=== PATIENT | male | born 1950 | race Caucasian/White ===

== ENCOUNTER 2021-06-15 15:38 | Inpatient (IN) | payer OTHER ==
[~2021-06-15] VITALS: Ht 177.8 cm; Wt 58.6 kg
--- NOTE | ~2021-06-15 | EMS ---
[facility] [address] [place] [address] EMS Patient Care Report Name: LUIS EDUARDO HOLLINGSWORTH Room #: REG STEF Ramos#: [id number] Admission: 06/15/21 Attend Phys: Discharge: Date of : 52 Report #: [id number] THIS REPORT FOR: //name// Report Transmitted: 06/15/2021 15:52 EMS Care Summary [place], [place]/[facility] Incident [id number] @ 06/15/2021 13:06 Incident Location [address] [place] [address] Patient ANDREW HOLLINGSWORTH Male, 71 Years 1950 Patient Address [address] [place] [address] Patient History Chronic Obstructive Pulmonary Disease (COPD), Chief Complaint general weakness/falls Disposition Transported No Lights/[place] Dispatch Reason Falls Transported To [facility] Narrative pt neighbors called for pt who is having multiple falls inside his home. they checked on him a couple days ago and found he had fallen through the floor in the bathroom and was unable to get up/out. it was believed he had been there for more than 24 hrs. they helped him out into a chair. they checked on him again today and found he had fallen again. they called 911 for pt eval. on arrival pt is ambulatory and denies injury. his home appears unsafe to live in, floors are rotting and ready to give way. pt clothing is covered in feces. pt is refusing to leave. pt helped outside to safe area. Note Specialist [facility] [address] [place] [address] EMS Patient Care Report Name: LUIS EDUARDO HOLLINGSWORTH Room #: REG Rachel#: [id number] Admission: 06/15/21 Attend Phys: Discharge: Date of : 52 Report #: [id number] arrives and calls [employer] to potentially condemn home. pt brother will not come get pt. eventually pt agrees to eval at [facility], knowing he will likely not be allowed back in home. pt seated on cot, VS transport w/o incident. Initial Vitals @15:24P: 73,R: 18,BP: 133/70,Pain: 0/10,GCS: 15,SpO2: 92,Revised Trauma: 12, Assessments @13:20MENTAL:No Abnormalities,SKIN:No Abnormalities,HEENT:Head/Face: No Abnormalities,LUNG SOUNDS:ABDOMEN:PELVIS//GI:Incontinence,EXTREMITIES:Left Arm: Other,Right Arm: Other,PULSE:Radial: 2+ Normal,NEURO:No Abnormalities, Impression Generalized Weakness Procedures @13:20ALS AssessmentResponse: Unchanged@13:25StretcherResponse: Unchanged Timeline 13:03,Call Received 13:03,Dispatch Notified 13:06,Dispatched 13:07,En Route 13:16,On Scene 13:18,At Patient 13:20,ALS Assessment,Response: Unchanged 13:25,Stretcher,Response: Unchanged 15:22,Depart Scene 15:24,BP: 133/70 M,PULSE: 73,RR: 18 R,SPO2: 92 Ox,ETCO2: ,BG: ,PAIN: 0,GCS: 15, 15:35,At Destination 15:56,Call Closed Disclaimer v1.1 Copyright 2020 [employer] This EMS Care Summary contains data elements from the applicable legal record (which may be displayed differently). It is designed to provide pertinent information for the following purposes: continuity of care, clinical quality, and state data reporting. The complete legal record is available to ED staff and administrators of the receiving hospital in [employer] (Inspect Manager)'s Patient Tracker. All data is provided "as is."
[2021-06-15 15:39] VITALS: BP 141/61
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
[2021-06-15 16:46] LABS: ABSOLUTE NEUTROPHILS 6.5 thou/uL (1.4-8.2); BASOPHILS 0.6 % (0.0-2.0); EOSINOPHILS 0.6 % (0.0-3.0); HEMATOCRIT 36.8 % (42.0-52.0); HEMOGLOBIN 12.5 gm/dL (14.0-18.0); LYMPHOCYTES 15.8 % (24.0-44.0); MCH 31.8 pg (26.0-34.0); MCHC 33.9 g/dL (28.0-37.0); MCV 93.9 fL (80.0-100.0); MONOCYTES 10.1 % (1.0-8.0); PLATELET COUNT 228 thou/uL (150-400); POLYS 72.9 % (36.0-66.0); RBC 3.92 mil/uL (4.50-6.00); RDW 13.6 % (10.5-14.5); WBC 8.9 thou/uL (4.0-11.0)
[2021-06-15 16:59] LABS: CALCIUM 8.8 mg/dL (8.5-10.1); CREATININE 1.2 mg/dL (0.7-1.3); POTASSIUM 3.7 mmol/L (3.5-5.1)
[2021-06-15 17:16] LABS: ALBUMIN 3.4 g/dL (3.4-5.0); TOTAL BILIRUBIN 0.7 mg/dL (0.2-1.0); TOTAL PROTEIN 6.7 g/dL (6.4-8.2)
[2021-06-15 17:52] LABS: URINE BILIRUBIN NEGATIVE (Negative); URINE BLOOD 3+ (Negative); URINE CLARITY CLEAR; URINE COLOR YELLOW; URINE GLUCOSE-RANDOM* NEGATIVE (Negative); URINE KETONES 3+ (Negative); URINE PROTEIN (DIPSTICK) TRACE (Negative); URINE SPECIFIC GRAVITY 1.015 (1.005-1.035)
[2021-06-15 18:05] LABS: URINE LEUKOCYTES-REFLEX 2+ (Negative); URINE NITRITE-REFLEX POSITIVE (Negative)
[2021-06-15 18:06] LABS: URINE REDUCING SUBSTANCE NEGATIVE
[2021-06-15 18:09] LABS: CASTS None Seen /LPF (None Seen); CRYSTALS None Seen /LPF (None Seen); SQUAMOUS 0-3 Few /LPF (0-3); URINE RBC 3-10 Few /HPF (NONE SEEN); URINE WBC-REFLEX 6-15 Few /HPF (0-5)
--- NOTE | 2021-06-15 21:46 | NUR ---
PT OUT OF ROOM IN HALLWAY APRIL CONFUSED ASKING FOR A BAGEL FROM THE FREEZER AND A CIGARETTE PT NOT RECEPTIVE TO REORIENTATION ATTEMPTS. PT PULED OUT IV AND OFF ALL VITAL MONITORING EQUIPMENT. PIV REPLACED AND PT PLACED BACK IN BED ON THE [facility]
[2021-06-15 22:55] VITALS: BP 137/60
--- NOTE | 2021-06-16 01:07 | NUR ---
PT ADMITTED TO UNIT APPROX 2256, RESTLESS, NOTED TO TAKE OFF OXYGEN, CONTINUES TO REFUSE REAPPLICATION. PT CONFUSED, MINIMALLY VERBAL. PT ALERT TO NAME, PREFERS TO BE CALLED 'WILL'. UNABLE TO OBTAIN FALL PRECAUTIONS CONSENT. PT ASSESSED WITH FLACC OF 0. PT NOTED TO BE GUARDED WITH BUE CLOSE TO CHEST. PT NOTED TO HAVE REDNESS WITH OPEN SKIN TO SACRUM, WOUND PICTURES TO BE OBTAINED WHEN PT COOPERATIVE AND LESS GUARDED. OTHERWISE ABRASIONS NOTED THROUGHOUT BODY IN ADDITION TO SCABS AND SCARS. PT INCONTINENT OF BOWEL AND BLADDER. PT ENCOURAGED TO NOTIFY STAFF FOR ALL NEEDS, CALL LIGHT WITHIN REACH, BED ALARM ON, BED LOCKED IN LOWEST POSITION, ROOM REMAINS NEAR NURSES STATION, FREQUENT MONITORING WILL CONTINUE.
[2021-06-16 04:24] VITALS: BP 132/75
[2021-06-16 05:59] LABS: CALCIUM 7.7 mg/dL (8.5-10.1); POTASSIUM 3.4 mmol/L (3.5-5.1)
[2021-06-16 06:02] LABS: HEMATOCRIT 31.1 % (42.0-52.0); MCH 32.3 pg (26.0-34.0); MCHC 33.8 g/dL (28.0-37.0); MCV 95.4 fL (80.0-100.0); RBC 3.26 mil/uL (4.50-6.00); RDW 13.2 % (10.5-14.5); WBC 7.9 thou/uL (4.0-11.0)
[2021-06-16 06:10] LABS: HEMOGLOBIN 10.5 gm/dL (14.0-18.0)
[2021-06-16 07:50] VITALS: BP 142/78
--- NOTE | 2021-06-16 10:07 | NUR ---
WOUND CONSULT; THE SACRUM AND UPPER BACK AREAS WERE ASSESSED. THE ETIOLOGY OF THESE AREAS ARE UKNOWN, PRESSURE VS FRICTION OR SCARRED AREAS OF PREVIOUS INJURY. NO DRAINAGE SEEN. NO ODOR. THE PATIENT CAN TURN HIMSELF. RECOMMENDATIONS; -BARRIER CRAM TO UPPER BACK/SACRUM -ENCOURAGE PATIENT TO TURN. -LOW AIR LOSS PUMP. DISCUSSED WITH STAFF.
--- NOTE | 2021-06-16 11:12 | NUR ---
Assumed care of pt at 0700. Pt alert but forgetful. IVF and IV antibiotics infusing. Denies pain. Will need placement. Will need MRI. Call light within reach. Fall precautions in place. Will continue to monitor.
[2021-06-16 12:16] LABS: FOLIC ACID 21.6 ng/mL (8.6-58.9)
--- NOTE | 2021-06-16 14:35 | NUR ---
CM MET WITH PATIENT PT IS SHOWING PATIENT PAY. CM ASKED PT IF HE HAS INSURANCE AND HE STATED YES BUT UNSURE WHAT PLAN. PT WAS ABLE TO STATE HIS NAME AND DATE OF BEING CORRECT AND REPORTS THAT HE GOES TO SEE DR. JOCELYN ROACH HIS PCP OFF . CM CONTACTED THEIR OFFICE AT [phone] WHO REPORT PT HAS [employer] GOLD PLAN ID #[id number]. CM NOTIFIED SW COVERING UNIT WELL PRE-CERT TO PLEASE VERIFY AND UPDATE INSURANCE INFO.
[2021-06-16 16:21] VITALS: BP 145/67
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
[2021-06-16 19:18] VITALS: BP 141/74
--- NOTE | 2021-06-17 01:31 | NUR ---
ASSUMED CARE OF PT AT 1900. BEDSIDE REPORT RECIEVED, SIMÓN ASSESSMENT COMPLETE. PT DENIES ANY PAIN AT THIS TIME, REQUESTING TO GO TO BED FROM CHAIR. ASSISTED PT TO BATHROOM PRIOR C SBA AND GAIT BELT, HAD SMALL BM. ASSISTED PT BACK TO BED. HIGH FALL PRECAUTIONS IN PLACE. MEDS GIVEN ORDER. LFA PIV CDI, PATENT C PROTECTIVE WRAP. IVF RUNNING ORDERED. PT EXPERIENCING CONFUSION, PROVIDED REORIENTATION AND PT EDUCATION. PT CONCERNED ABOUT COST OF STAY. PROVIDED REASSURANCE, WILL PASS ON TO DAY SHIFT. NO OTHER NEEDS AT THIS TIME. CALL LIGHT IN REACH
[2021-06-17 05:51] LABS: ALBUMIN 2.4 g/dL (3.4-5.0)
[2021-06-17 05:53] LABS: CALCIUM 7.6 mg/dL (8.5-10.1); MAGNESIUM 1.7 mg/dL (1.8-2.4); PHOSPHORUS 3.2 mg/dL (2.6-4.7); POTASSIUM 3.9 mmol/L (3.5-5.1)
[2021-06-17 07:43] VITALS: BP 176/72
--- NOTE | 2021-06-17 11:37 | NUR ---
Assumed care of pt at 0700. Denies pain. SBA. IVF discontinue per order. Pt needs placement. Call light within reach. Fall precautions in place. Will continue to monitor.
[2021-06-17 15:11] VITALS: BP 148/84
--- NOTE | 2021-06-17 17:05 | NUR ---
ALISA reviewed chart and spoke with nursing and attending physician. Pt remains on IV abx and is progressing towards goals for discharge. Neuro surgery consulted. Psych consult ordered to evaluate pt's capacity for decision making. [facility] was able to verify pt's insurance. Pt has [facility] Medicare. The spelling of pt's last name has also been updated. ALISA met with pt at bedside. Introduced role of SW. Pt is alert to self only. Pt unable to state name of hospital or location of hospital. SW asked pt about his living situation. Pt states that he has been living in his car and that he thinks he drove himself to the hospital. SW explained that an ambulance brought him to the hospital after falling at home. Pt does not remember falling. Pt asked if his car was at his home. Pt was able to verify home address and . Pt states his PCP is Dr. Sundar Styles at [facility]. Pt able to state that the physician's office is at [address] [place] [address]. SW informed pt that his insurance has been verified and informed pt that he has [facility]. Pt states he thought that he had [employer] insurance. Pt states he has not had HH services or been to a SNF in the past. Pt reports he is able to make his own meals and has working utilities at his home. Pt states he knows he should not return home until the floors have been rebuilt. Pt states he will sell his house and will be going to stay with his brother, Master. Pt unable to provide Master's phone number and states that his brother is aware of his living situation. Pt states that he does not have any other family or friends that can help with his situation. No contact info for pt's brother on file or in ER report. ALISA left voice message for [facility] to see if pt has an open case, now that pt's name has been corrected. ALISA placed call to [facility] [email or web address] [facility] and spoke with Dr. Styles's PA, Giovanna. Obtained contact info for pt's brother Master ( ). Pt was last seen in the office on 06/27/2020 for his annual physical. He has not followed up since that time. Pt with hx of COPD and is a daily smoker. No use of ETOH. Pt has seen Dr. Zavaleta since December of 2016. No DPOA document on file. ALISA placed call to pt's brother. Introduced role of SW. Pt's brother states that he has not seen his brother in the past 6 months due to COVID. Pt was doing his laundry at Master's house. Once pt received the COVID vaccine, he started going back to the laundromat. Master states he has left message for the [facility] to determine the status of pt's home. To his knowledge there are not any violations that have been issued. ALISA reviewed documentation from ER report. Pt has never and does not have children. Pt's two sisters are both . Pt's brother is his only living family member. Per Master, pt has been independent with medical and financial matters and has never appointed a DPOA. Pt is retired from [employer]. Pt has a Bachelors Degree. He is not a [employer]. 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 Pt's brother states that pt was supposed to have cataract surgery prior to the COVID pandemic. Pt with hx of THC use. ALISA discussed discharge plan. Pt is not able to stay with Master at this time due to Master working from home. Master would like to be kept updated regarding pt's care and discharge plan. ALISA explained that pt will likely need placement. Pt will need [place], as he does not have the financial means to pay privately. ALISA notified [facility] [employer] to assist. ALISA placed Master's contact info in [place]. ALISA is following to assist as needed with discharge planning.
[2021-06-17 20:16] VITALS: BP 154/82
--- NOTE | 2021-06-18 02:24 | NUR ---
ASSUMED PT CARE AT 1900.PT WAS OBSERVED SITTING UP IN THE RECLINER IN HIS ROOM WATCHING TV.PT DENIED PAIN SO FAR.MULTIPLE BRUISING ALL OVER BODY.ABRAISION TO L KNEE FROM FALL.BARRIER CREAM TO BACK AND SACRUM.PT VERY SAULT STE. MARIE.PT SLEEPING ON HIS BED AT THIS TIME.CALL LIGHT WITHIN REACH.
[2021-06-18 08:21] VITALS: BP 156/103
--- NOTE | 2021-06-18 09:55 | NUR ---
WOUND CARE F/U; THE SACRUM AND BACK AREAS ARE CLINICALLY BETTER TODAY. NO S/S OF INFECTION. NO ERYTHEMA. NO CHANGES TO THE PLAN OF CARE. PATIENT IS UP IN A CHAIR TODAY AND CAN STAND WITHOUT DIFFICULTY. NO CHANGES NEEDED.
[2021-06-18] MEDS ORDERED: CIPRO500 M1 PO (13:08)
--- NOTE | 2021-06-18 13:08 | NUR ---
Pt agreeable to SNF stay with transition to ltc medicaid pending. [facility] [employer] notified with request to start medicaid wojciech. Referrals faxed and called to Jayne morgan and Ju and requested both visit with him regarding facility options for ltc. Dc ready today. Seen by Psych and pt aware that he can no longer live in his home. PT/OT have evaluated. Short SNF stay appropriate as well. Pt is A&ox4 today with insight into his situation. [facility] for baseline eval. DC Plan is to SNF once accepted.
--- NOTE | 2021-06-18 17:14 | NUR ---
ASSUMED CARE OF PT AT 0700 THIS MORNING. PT WAS ADMITTED FROM ER LAST NIGHT. PT DX WITH UTI, DEHYDRATION AND FELL. PT IS A/OX3-4 WITH SOME CONFUSION. ASSESSMENTS NOTED IN CHART AND OTHERWISE UNREMARKABLE. FALL PRECAUTIONS ARE IN PLACE. PT IS UP WITH ASST WITH GAIT BELT. PT DOES HAVE A NONPRODUCTIVE COUGH. IV IN LT FA SL. PT IS BEING DISCHARGED TO [facility] LATER THIS AFTERNOON, EVENING. CALL LIGHT AND OTHER NEEDS ARE IN PLACE. MEDS AND TX GIVEN NEEDED AND SCHEDULED. WILL MONITOR AND NOTE ANY CHANGES.
--- NOTE | 2021-06-20 10:36 | NUR ---
Call rec'd from [facility] liason indicating pt left ama today going back to his home. His brother was notified. The pt was a&xo4.
== END 2021-06-18 18:31 | DRG 557 ==
LOC: ER 15:38 → 4S 19:44 → EROBS 19:44 → 4S 22:56
PROVIDERS: Nurse Practitioner Family; Physician Assistant; ADMIT Hospitalist; ATTEND Hospitalist
DX: M62.82 Rhabdomyolysis (principal); G93.41 Metabolic encephalopathy; E43 Unspecified severe protein-calorie malnutrition; N39.0 Urinary tract infection, site not specified; E86.0 Dehydration; F17.210 Nicotine dependence, cigarettes, uncomplicated; R29.6 Repeated falls; R53.81 Other malaise; M48.02 Spinal stenosis, cervical region; Z60.2 Problems related to living alone; W18.30XA Fall on same level, unspecified, initial encounter; F03.90 Unspecified dementia, unspecified severity, without behavioral disturbance, psychotic disturbance, mood disturbance, and anxiety; S30.0XXA Contusion of lower back and pelvis, initial encounter; J44.9 Chronic obstructive pulmonary disease, unspecified; Z20.822 Contact with and (suspected) exposure to COVID-19; Z86.16 Personal history of COVID-19; Z91.81 History of falling; Y93.89 Activity, other specified; Y92.89 Other specified places as the place of occurrence of the external cause; Y99.8 Other external cause status; Z71.6 Tobacco abuse counseling
CPT/HCPCS: 10195

== ENCOUNTER 2021-06-27 14:34 | Inpatient (IN) | payer OTHER ==
[~2021-06-27] VITALS: Ht 177.8 cm; Wt 57.0 kg
[2021-06-27] VITALS (21 sets, daily range): BP systolic 96–122; BP diastolic 50–63
--- NOTE | ~2021-06-27 | EMS ---
[facility] [address] [place] [address] EMS Patient Care Report Name: LUIS EDUARDO VASQUEZ Room #: 246-P ADM IN M.R.#: [id number] Admission: 06/27/21 Attend Phys: Elton Ruff MD Discharge: Date of : 52 Report #: [id number] THIS REPORT FOR: //name// Report Transmitted: 06/30/2021 12:33 EMS Care Summary [place], [place]/[facility] Incident [id number] @ 06/27/2021 13:48 Incident Location [id number] [place] [id number] Patient LUIS EDUARDO VASQUEZ Male, 71 Years 1950 Patient Address Chief Complaint AMS AND RESP FAILURE Disposition Transported Lights/[place] Dispatch Reason Unconscious/Fainting Transported To [facility] Narrative UPON ARRIVAL WE FOUND P45 PERFORMING BVM VENTILATIONS ON OUR 71 YEAR OLD MALE PATIENT, WHO IS LAYING SUPINE IN THE GRAVEL DRIVEWAY OF A RESIDENCE WITH A [facility] INSTALLATION AND REPAIR TECHNICIAN BY HIS SIDE. THE INSTALLATION AND REPAIR TECHNICIAN STATES SHE CAME TO ASSESS THE PATIENT AND SHE FOUND HIM UNRESPONSIVE IN THE EXCHANGE OPERATOR'S SEAT OF A SEDAN WITH AGONAL RESPS. P45 STATES THE PATIENT IS HYPOTENSIVE WITH A BP OF 80/50 AND HYPOXIC WITH A ROOM AIR SAO2 READING OF 67%. THE PATIENT WAS ACTIVELY VOMITING AND HIS SAO2 READING DID NOT IMPROVE SIGNIFICANTLY WITH BVM VENTILATIONS, SO I ELECTED TO ORALLY INTUBATE THE PATIENT WITH AN 8.0 ETT AND I SECURED IT WITH A TUBE TAMER AT 24 CM AT THE LIPS. I VERIFIED THE ETT VIA VISUALIZATION OF THE CORDS, CONDENSATION IN THE ETT, + EQUAL CX RISE/LUNG SOUNDS, - EPIGASTRIC SOUNDS, AND A GOOD ETCO2 WAVEFORM. THE PATIENT'S SAO2 READING IMPROVED SIGNIFICANTLY AFTER INTUBATION/DEEP SUCTIONING AND HIS BP IMPROVED AFTER A FLUID BOLUS. AFTER STABILIZING THE PATIENT, WE TRANSPORTED THE PATIENT TO [facility] [address] [place] [address] EMS Patient Care Report Name: LUIS EDUARDO VASQUEZ Room #: 246-P [facility] IN [facility]#: [id number] Admission: 06/27/21 Attend Phys: Elton Ruff MD Discharge: Date of : 52 Report #: [id number] FOR EVALUATION AND TREATMENT. Initial Vitals @14:22P: 120,R: 12,CO: 6,EtCO2: 26,SpO2: 92, @14:17P: 105,EtCO2: 26,SpO2: 66, @14:18P: 102,R: 16,EtCO2: 23,SpO2: 63, @14:09P: 36,SpO2: 80, @14:20P: 108,R: 17,EtCO2: 24,SpO2: 66, @14:09P: 120,R: 16,BP: 82/51,Pain: 0/10,GCS: 3,Glucose: 104,SpO2: 81,Revised Trauma: 7,MS Suspected: false @14:30P: 124,R: 16,BP: 100/50,Pain: 0/10,GCS: 3,EtCO2: 30,SpO2: 95,Revised Trauma: 8,MS Suspected: false Assessments @14:07MENTAL:Unresponsive,SKIN:Pale,HEENT:Neck/Airway: JVD,Eyes: Right Pupil: 5-mm,Eyes: Left Pupil: 5-mm,Head/Face: No Abnormalities,LUNG SOUNDS:General: Vomiting,General: Nausea,ABDOMEN:General: Vomiting,General: Nausea,PELVIS//GI:Incontinence,EXTREMITIES:Left Arm: No Abnormalities,Right Arm: No Abnormalities,Left Leg: No Abnormalities,Right Leg: No Abnormalities,PULSE:Radial: 1+ Thready,NEURO:Other, Impression Respiratory Failure Procedures @14:07ALS AssessmentResponse: UnchangedSucceeded@PTANPA Response: UnchangedSucceeded@14:093-Lead ECGResponse: UnchangedSucceeded@PTAOxygen FlowRate: 15 Device: Bag Valve Mask (BVM) Response: UnchangedSucceeded@14:16Orotracheal Intubation Complications: None,Response: UnchangedSucceeded@14:19Suction Response: UnchangedSucceeded@14:13Normal Saline (.9% NaCl) 350cc (20 ga) Site: Forearm-RightResponse: UnchangedSucceeded@14:15Suction Response: UnchangedSucceeded Timeline CMO & PRESIDENT,NPA Response: UnchangedSucceeded, CMO & PRESIDENT,Oxygen FlowRate: 15 Device: Bag Valve Mask (BVM) Response: UnchangedSucceeded, 13:46,Call Received 13:46,Dispatch Notified 13:48,Dispatched 13:49,En Route 14:05,On Scene 14:07,At Patient 14:07,ALS Assessment,Response: UnchangedSucceeded, 14:09,3-Lead ECG,Response: UnchangedSucceeded, 14:09,BP: / M,PULSE: 36,RR: R,SPO2: 80 Ox,ETCO2: ,BG: ,PAIN: ,GCS: , [facility] [address] [place] [address] EMS Patient Care Report Name: LUIS EDUARDO VASQUEZ Room #: 246-P [facility] IN [facility]#: [id number] Admission: 06/27/21 Attend Phys: Elton Ruff MD Discharge: Date of : 52 Report #: [id number] 14:09,BP: 82/51 M,PULSE: 120,RR: 16 R,SPO2: 81 Ox,ETCO2: ,B,PAIN: 0,GCS: 3, 14:13,Normal Saline (.9% NaCl) 350cc 20 ga Site: Forearm-Right,Response: UnchangedSucceeded, 14:15,Suction Response: UnchangedSucceeded, 14:16,Orotracheal Intubation Complications: None,,Response: UnchangedSucceeded, 14:17,BP: / M,PULSE: 105,RR: R,SPO2: 66 Ox,ETCO2: 26 ,BG: ,PAIN: ,GCS: , 14:18,BP: / M,PULSE: 102,RR: 16 R,SPO2: 63 Ox,ETCO2: 23 ,BG: ,PAIN: ,GCS: , 14:19,Suction Response: UnchangedSucceeded, 14:20,BP: / M,PULSE: 108,RR: 17 R,SPO2: 66 Ox,ETCO2: 24 ,BG: ,PAIN: ,GCS: , 14:21,Depart Scene 14:22,BP: / M,PULSE: 120,RR: 12 R,SPO2: 92 Ox,ETCO2: 26 ,BG: ,PAIN: ,GCS: , 14:30,BP: 100/50 M,PULSE: 124,RR: 16 R,SPO2: 95 Ox,ETCO2: 30 ,BG: ,PAIN: 0,GCS: 3, 14:32,At Destination 14:51,Call Closed Disclaimer v1.1 Copyright 2020 [employer] This EMS Care Summary contains data elements from the applicable legal record (which may be displayed differently). It is designed to provide pertinent information for the following purposes: continuity of care, clinical quality, and state data reporting. The complete legal record is available to ED staff and administrators of the receiving hospital in [facility]'s Patient Tracker. All data is provided "as is."
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
--- NOTE | ~2021-06-27 | EEG ---
[facility] [place] [address] ELECTROENCEPHALOGRAM Name: LUIS EDUARDO VASQUEZ Room #: 246-P ADM IN M.R.#: [id number] Admission: 06/27/21 Attend Phys: Elton Ruff MD Discharge: Date of : 52 Report #: [id number] THIS REPORT FOR: //name// DATE OF SERVICE: 06/30/2021 This patient is being evaluated for altered mental status. EEG was done to evaluate that. The EEG is difficult to evaluate because there is a very low voltage. A lot of muscle artifact is present, but low voltage activities at about 4-5 Hz and 5 microvolt appeared to be present. No active epileptiform activity was noticed. Photic stimulation was unremarkable. IMPRESSION: This patient's EEG is difficult to evaluate because a lot of artifact is present. It is abnormal because it is a low-voltage and suppressed. That finding can occur with encephalopathy, effect of psychotropic medication, dementia, etc. Clinical correlation is recommended. Thank you very much for this referral. By: 1213 1228 Anam Smith MD /nt
[~2021-06-27 14:34] MED LIST: CIPRO500 M1 PO
[2021-06-27 15:02] LABS: HEMATOCRIT 35.8 % (42.0-52.0); HEMOGLOBIN 11.8 gm/dL (14.0-18.0); MCH 31.7 pg (26.0-34.0); MCV 95.8 fL (80.0-100.0); RBC 3.74 mil/uL (4.50-6.00); RDW 14.2 % (10.5-14.5); WBC 16.4 thou/uL (4.0-11.0)
[2021-06-27 15:09] LABS: BE(vivo) 1.4 mmol/L (-2 to +3); HCO3 27.4 mmol/L (22.0-26.0); PCO2 48.3 mmHg (35.0-45.0); pH 7.371 (7.360-7.450); sO2 94.4 % (92.0-98.0)
[2021-06-27 15:23] LABS: URINE BILIRUBIN NEGATIVE (Negative); URINE BLOOD TRACE (Negative); URINE CLARITY CLEAR; URINE COLOR YELLOW; URINE GLUCOSE-RANDOM* NEGATIVE (Negative); URINE KETONES 1+ (Negative); URINE LEUKOCYTES-REFLEX NEGATIVE (Negative); URINE NITRITE-REFLEX NEGATIVE (Negative); URINE PROTEIN (DIPSTICK) TRACE (Negative); URINE SPECIFIC GRAVITY >= 1.030 (1.005-1.035); URINE UROBILINOGEN 0.2 E.U./dl (0.2-1.0)
[2021-06-27 15:24] LABS: ALBUMIN 1.7 g/dL (3.4-5.0); ANION GAP 11 mmol/L (7-16); BUN 20 mg/dL (7-18); CHLORIDE 121 mmol/L (98-107); CO2 17 mmol/L (21-32); CREATININE 0.9 mg/dL (0.7-1.3); GLUCOSE 73 mg/dL (74-106); MAGNESIUM 1.3 mg/dL (1.8-2.4); PHOSPHORUS 3.5 mg/dL (2.6-4.7); SALICYLATE < 2.8 mg/dL (2.8-20.0); SGOT 35 U/L (15-37); SGPT 14 U/L (16-63); SODIUM 149 mmol/L (136-145); TOTAL BILIRUBIN 0.3 mg/dL (0.2-1.0); TOTAL PROTEIN 3.9 g/dL (6.4-8.2)
[2021-06-27 15:31] LABS: CALCIUM 5.2 mg/dL (8.5-10.1); POTASSIUM 2.8 mmol/L (3.5-5.1)
[2021-06-27 15:35] LABS: AMP/METHAMP Negative (Negative); BARBITURATES Negative (Negative); BENZODIAZEPINES Negative (Negative); COCAINE Negative (Negative); METHADONE Negative (Negative); OPIATES Negative (Negative); PCP Negative (Negative)
--- NOTE | 2021-06-27 16:39 | NUR ---
VAT CONSULTED FOR CVL PLACEMENT. 6FR TL JACC TO RIGHT IJ. ALL LUMENS PATENT TO FLUSH AND BLOOD RETURN. TRIMMED 25CM/8CM EXTERNAL. LOT PT INTUBATED/TOLERATED WELL. CXR FOR TIPN LOCATION CONFIRMATION.
--- NOTE | 2021-06-27 17:55 | NUR ---
RADIOLOGY REPORT: RIGHT IJ TIP OVERLIES ATRIAL CAVAL JUNCTION. RELEASED FOR USE, PER [facility] VASCULAR ACCESS POLICY.
[2021-06-28] VITALS (33 sets, daily range): BP systolic 95–116; BP diastolic 53–68
[2021-06-28 05:03] LABS: BE(vivo) -0.5 mmol/L (-2 to +3); HCO3 24.8 mmol/L (22.0-26.0); PCO2 43.2 mmHg (35.0-45.0); PO2 101.3 mmHg (80.0-100.0); pH 7.377 (7.360-7.450); sO2 97.5 % (92.0-98.0)
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
[2021-06-28 06:40] LABS: ABSOLUTE NEUTROPHILS 10.9 thou/uL (1.4-8.2); BASOPHILS 0.2 % (0.0-2.0); HEMATOCRIT 34.6 % (42.0-52.0); HEMOGLOBIN 11.1 gm/dL (14.0-18.0); LYMPHOCYTES 7.8 % (24.0-44.0); MCHC 32.2 g/dL (28.0-37.0); MCV 96.4 fL (80.0-100.0); MONOCYTES 4.3 % (1.0-8.0); PLATELET COUNT 223 thou/uL (150-400); POLYS 87.7 % (36.0-66.0); RBC 3.59 mil/uL (4.50-6.00); RDW 13.9 % (10.5-14.5); WBC 12.5 thou/uL (4.0-11.0)
[2021-06-28 06:59] LABS: ALBUMIN 2.4 g/dL (3.4-5.0); CREATININE 1.3 mg/dL (0.7-1.3); TOTAL BILIRUBIN 0.8 mg/dL (0.2-1.0); TOTAL PROTEIN 5.7 g/dL (6.4-8.2)
[2021-06-28 07:01] LABS: POTASSIUM 4.7 mmol/L (3.5-5.1)
--- NOTE | 2021-06-28 08:28 | NUR ---
P.T. EVAL PLACED ON HOLD AT THIS TIME PT IS CURRENTLY SEDATED ON VENTILATOR. REQUEST NEW P.T. ORDER WHEN PT IS ABLE TO PARTICIPATE IN THERAPEUTIC EVALUATION/INTERVENTIONS.
--- NOTE | 2021-06-28 09:46 | EKG ---
[place] [address] [facility] [address] [place] [address] ELECTROCARDIOGRAM REPORT Name: LUIS EDUARDO VASQUEZ Room #: 246-P ADM IN M.R.#: [id number] Admission: 06/27/21 Attend Phys: Elton Ruff MD Discharge: Date of : 52 Report #: [id number] [facility] ED Test Date: 2021-06-27 Test Time: 15:07:56 Pat Name: LUIS EDUARDO VASQUEZ Department: Room: 246 Gender: M Nursing Unit Manager: yon chaudhari : 1950 Requested By: Cliff Hdez Order Number: [id number] MD: Graeme Kothari Measurements Intervals [place] Rate: 113 P: 87 OH: 148 QRS: -63 QRSD: 112 T: -16 QT: 335 QTc: 460 Interpretive Statements Pacemaker spikes or artifacts Sinus tachycardia Biatrial enlargement Incomplete right bundle branch block Nonspecific ST depression, anterior leads Borderline ST elevation, lateral leads No previous ECG available for comparison Electronically Signed On 06-28-2021 9:46:25 CDT by Graeme Kothari [email or web address] <ELECTRONICALLY SIGNED> By: Graeme Kothari MD, [facility] 06/28/21 0946 [id number] Graeme Kothari MD, [facility] /EPI
--- NOTE | 2021-06-28 10:36 | NUR ---
PATIENT NOT APPROPRIATE FOR OT EVAL TODAY PER PHYSICAL THERAPY. OT TO CHECK 06/24
[2021-06-28 14:14] LABS: BE(vivo) 1.3 mmol/L (-2 to +3); HCO3 26.8 mmol/L (22.0-26.0); PCO2 46.4 mmHg (35.0-45.0); PO2 61.2 mmHg (80.0-100.0); sO2 90.9 % (92.0-98.0)
[2021-06-29] VITALS (25 sets, daily range): BP systolic 91–134; BP diastolic 47–80
[2021-06-29 05:39] LABS: BASOPHILS 0.2 % (0.0-2.0); EOSINOPHILS 1.2 % (0.0-3.0); HEMATOCRIT 33.5 % (42.0-52.0); LYMPHOCYTES 11.9 % (24.0-44.0); MCH 31.7 pg (26.0-34.0); MCV 95.9 fL (80.0-100.0); MONOCYTES 4.9 % (1.0-8.0); PLATELET COUNT 201 thou/uL (150-400); POLYS 81.8 % (36.0-66.0); RBC 3.49 mil/uL (4.50-6.00); RDW 13.6 % (10.5-14.5); WBC 9.7 thou/uL (4.0-11.0)
[2021-06-29 05:45] LABS: BE(vivo) 3.2 mmol/L (-2 to +3); HCO3 27.6 mmol/L (22.0-26.0); PCO2 41.3 mmHg (35.0-45.0); PO2 71.4 mmHg (80.0-100.0); pH 7.443 (7.360-7.450); sO2 94.9 % (92.0-98.0)
[2021-06-29 06:45] LABS: ALBUMIN 2.4 g/dL (3.4-5.0); CALCIUM 8.4 mg/dL (8.5-10.1); POTASSIUM 3.8 mmol/L (3.5-5.1); TOTAL BILIRUBIN 0.4 mg/dL (0.2-1.0); TOTAL PROTEIN 5.7 g/dL (6.4-8.2)
[2021-06-29 12:28] LABS: BE(vivo) 3.7 mmol/L (-2 to +3); HCO3 28.3 mmol/L (22.0-26.0); PCO2 42.5 mmHg (35.0-45.0); PO2 57.3 mmHg (80.0-100.0); pH 7.441 (7.360-7.450); sO2 90.8 % (92.0-98.0)
--- NOTE | 2021-06-29 17:45 | NUR ---
PATIENT REMAINS MODERATELY SEDATED DESPITE MINIMAL SEDATION MEDICATION LEVELS AT THIS TIME. PT TOLERATED CPAP TRIAL AND SEDATION VACTION WELL TODAY. HAS REMAINED NSR THROUGHOUT THE COURSE OF THE SHIFT AND HAS NOT PROGESSED FAR NEUROLOGIC STATUS, STILL NO MOVEMENT, PT DOES HAVE POSITIVE GAG/COUGH REFLEX WITH SUCTIONING. NEURO MD SAW PT TODAY AND STATED WANTING MRI AND EEG WHEN POSSIBLE. ORDER FOR MRI PLACED FOR TODAY THOUGH MD STATED WEDNESDAY WOULD BE APPROPERIATE. WILL CONTINUE TO MONITOR.
--- NOTE | 2021-06-29 21:01 | NUR ---
ASSUMED CARE AT 1900. RECEIVED CALL FROM YESENIA "ED" CHRISTINA ([phone]), PT'S BROTHER WHO STATED HE HAD BEEN LOOKING FOR THE PT SINCE WEDNESDAY, AND WAS INFORMED BY PT'S NEIGHBOR THIS [facility]NOON [facility]. ED REPORTED HE HAD SEEN HIS BROTHER A FEW TIMES SINCE HIS PREVIOUS ADMISSION, INCLUDING AT THE CARE FACILITY PT LEFT AMA FROM; REPORTED THE PT WAS LIVING BACK IN HIS HOUSE DESPITE IT BEING CONDEMMED. ED STATED THAT ON AT LEAST ONE OCCASION IN THE LAST 2 WEEKS, PT DID NOT RECOGNIZE HIM AND HE WAS "DELERIOUS" BUT THEN HE "GOT BETTER, CLEARED UP." ED REPORTED LAST SEEING THE PT VERY LATE ON WEDNESDAY NIGHT, AND THAT PT WAS HAVING TROUBLE WITH HIS PHONE NOT GETTING TEXTS AND THEN BEING SHUT OFF. SOMETIME AFTER THAT VISIT, PER ED, A NEIGHBOR SAID THE PT JACKNIFED HIS CAR IN HIS DRIVEWAY AND BACKED INTO A TREE AND IT STAYED THAT WAY UNTIL THE NEIGHBOR CALLED EMS WEDNESDAY, HAVING FOUND THE PT TO STILL BE IN HIS CAR. 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 STATED HE AND HIS , A WILDLAND FIRE OPERATIONS SPECIALIST, WERE TRYING TO HELP PT SET UP DPOA PAPERS SINCE THE PRIOR ADMISSION BUT HAD NOT COMPLETED THE PROCESS YET. UPDATED HIM ON THE PT'S CONDITION SINCE ARRIVAL, INCLUDING PLAN FOR MRI AND EEG IN THE MORNING. GAVE HIM THE PT'S 4-DIGIT CODE, EDUCATED ABOUT WHO COULD RECEIVE INFORMATION, AND ICU VISITING HOURS.
[2021-06-30] VITALS (24 sets, daily range): BP systolic 109–155; BP diastolic 58–80
[2021-06-30 04:12] LABS: BE(vivo) 3.3 mmol/L (-2 to +3); HCO3 27.6 mmol/L (22.0-26.0); PCO2 41.1 mmHg (35.0-45.0); PO2 121.8 mmHg (80.0-100.0); pH 7.445 (7.360-7.450); sO2 98.5 % (92.0-98.0)
[2021-06-30 05:28] LABS: ABSOLUTE NEUTROPHILS 7.2 thou/uL (1.4-8.2); BASOPHILS 0.3 % (0.0-2.0); EOSINOPHILS 1.7 % (0.0-3.0); HEMATOCRIT 30.4 % (42.0-52.0); LYMPHOCYTES 12.3 % (24.0-44.0); MCH 31.7 pg (26.0-34.0); MCV 96.2 fL (80.0-100.0); MONOCYTES 5.2 % (1.0-8.0); PLATELET COUNT 193 thou/uL (150-400); POLYS 80.5 % (36.0-66.0); RBC 3.16 mil/uL (4.50-6.00); RDW 13.7 % (10.5-14.5)
[2021-06-30 05:52] LABS: ALBUMIN 2.1 g/dL (3.4-5.0); CALCIUM 8.1 mg/dL (8.5-10.1); CREATININE 0.9 mg/dL (0.7-1.3); POTASSIUM 3.5 mmol/L (3.5-5.1); TOTAL BILIRUBIN 0.5 mg/dL (0.2-1.0); TOTAL PROTEIN 5.4 g/dL (6.4-8.2)
--- NOTE | 2021-06-30 07:38 | NUR ---
VARIANCE NOTE: PT INTUBATED AND SEDATED AT THIS TIME, AND UNABLE TO PARTICIPATE IN O.T. EVAL. WILL PLACE PT ON HOLD AT THIS TIME AND AWAIT NEW ORDERS PT INCREASES IN MEDICAL STATUS.
--- NOTE | 2021-06-30 10:12 | NUR ---
WOUND CONSULT; A LEFT BUTTOCK WOUND WAS IDENTIFIED APPROX 4 X 10 CM WHICH IS AN INTACT BLISTER WITH INDURATION SUPICIOUS OF DEEP TISSUE DAMAGE AND OR A HEMATOMA. THE LEFT ELBOW HAS A SMALL BRUISE CONSISTANT WITH A DTI. THE RIGHT FOOT HAS A DTI WELL THE RIGHT HEEL 2 X 2 X 0. THE LEFT LAT NECK HAS A WOUND WITH A LINEAR PRESENTATION CONSISTANT WITH A COMPUTER COMPOSITOR. RECCOMMENDATIONS; -Q2H TURNING. -CONSULT DR JIMENEZ. -FOR NOW BORDER FOAM TO ALL. DISCUSSED WITH
[2021-06-30 14:51] LABS: MAGNESIUM 1.9 mg/dL (1.8-2.4); POTASSIUM 3.5 mmol/L (3.5-5.1)
--- NOTE | 2021-06-30 16:55 | NUR ---
Chart reviewed and case discussed with the care team. Pt known to cm from recent dc on 06/18/[address] [facility]. At that time the pt was agreeable to short snf stay and transition to their INTERMEDIATE/[facility] apts. He had completed a mo medicaid application and was going to have their socialworker help him call his 401k plan to see how to marquez it in to either fix his home or pay for his stay there. Call back rec'd from their liason on 06/20 that the pt had left there AMA. He was a&ox4 and ambulatory. His brother Ed is his next of kin relative. The pt was found on 06/27/21 unresponsive in his car by a neighbor and EMS was called. The pt is currently in the ICU on a vent. Prognosis and dc planning needs are uncertain at this time. The medical team has been in contact with his brother. Will follow.
--- NOTE | 2021-06-30 19:09 | NUR ---
Patient not progressing towards plan of care as evidenced by continued requirement of ventilator support.
--- NOTE | 2021-06-30 19:10 | NUR ---
Senior Services sales representative marine supplies, Becky, called and wanted an update from the administrator social welfare. Her number is [phone].
[2021-07-01] VITALS (24 sets, daily range): BP systolic 92–134; BP diastolic 48–73
[2021-07-01 05:32] LABS: HEMATOCRIT 27.9 % (42.0-52.0); HEMOGLOBIN 9.4 gm/dL (14.0-18.0); MCH 32.1 pg (26.0-34.0); MCHC 33.7 g/dL (28.0-37.0); MCV 95.2 fL (80.0-100.0); RBC 2.93 mil/uL (4.50-6.00); RDW 13.4 % (10.5-14.5); WBC 7.2 thou/uL (4.0-11.0)
[2021-07-01 06:16] LABS: CREATININE 0.8 mg/dL (0.7-1.3); POTASSIUM 3.5 mmol/L (3.5-5.1)
--- NOTE | 2021-07-01 07:22 | NUR ---
PT REMAIN LIGHTLY SEDATED. WILL OPEN EYES TO STIMULUS IF AGITATED ENOUGH. DOESN'T ATTEMPT TO BOTHER EQUIPMENT. VENT SETTING: AC 16, PEEP 5, TV 500, FI02 35% SUTHERALND PATENT, DK YELLOW. TOLERATING TF, LOW RESIDUAL. REPLACEMENT FOR K+ FOR 3.5 RESULTS. NO BM, MYRALAX GIVEN. MRI TO BE DONE TODAY R/T MACHINE NOT OPERABLE YESTERDAY. DIOGO (WOUND CARE) NOTIFIED OF "COMPLETE" STATUS OF WOUNDS IN ASSESSMENT. VSS, SR-SB PER MONITOR. SLOW PROGRESS TOWARDS DC GOALS. WILL CONTINUE TO MONITOR.
[2021-07-02] VITALS (22 sets, daily range): BP systolic 90–151; BP diastolic 45–77
[2021-07-02 05:13] LABS: HEMATOCRIT 26.8 % (42.0-52.0); HEMOGLOBIN 9.1 gm/dL (14.0-18.0); MCH 32.3 pg (26.0-34.0); MCV 94.9 fL (80.0-100.0); RBC 2.83 mil/uL (4.50-6.00); RDW 13.1 % (10.5-14.5); WBC 5.8 thou/uL (4.0-11.0)
[2021-07-02 05:35] LABS: CALCIUM 7.9 mg/dL (8.5-10.1); CREATININE 0.7 mg/dL (0.7-1.3); POTASSIUM 3.8 mmol/L (3.5-5.1)
--- NOTE | 2021-07-02 15:47 | NUR ---
PT BROTHER WAS AT BEDSIDE AT 1530. PT BROTHER TOOK BELONGING HOME. IT INCLUDED A CELL PHONE, CAR KEYS, WALLET, AND SOME CLOTHES. PT ON FENT GTT FOR SEDATION AND PLAIN CONTROL. PT TOLERATING TUBE FEED RATE INCREASE FROM 40 TO 50. SATTING >95% ON 30% FIO2.
[2021-07-03] VITALS (24 sets, daily range): BP systolic 90–141; BP diastolic 47–70
[2021-07-03 05:33] LABS: HEMATOCRIT 28.4 % (42.0-52.0); HEMOGLOBIN 9.6 gm/dL (14.0-18.0); MCHC 33.7 g/dL (28.0-37.0); RBC 2.99 mil/uL (4.50-6.00); RDW 13.2 % (10.5-14.5); WBC 6.2 thou/uL (4.0-11.0)
[2021-07-03 05:53] LABS: CALCIUM 7.9 mg/dL (8.5-10.1); CREATININE 0.7 mg/dL (0.7-1.3); POTASSIUM 3.7 mmol/L (3.5-5.1)
--- NOTE | 2021-07-03 06:27 | NUR ---
PT HAD ISSUES WITH MUCUS PLUGS OVERNIGHT. PT DOES NOT TRACK OR FOLLOW COMMANDS. TUBE FEED AT GOAL RATE. ADEQUATE URINE OUTPUT.
[2021-07-04] VITALS (24 sets, daily range): BP systolic 95–141; BP diastolic 48–76
[2021-07-04 05:00] LABS: HEMATOCRIT 29.2 % (42.0-52.0); HEMOGLOBIN 10.1 gm/dL (14.0-18.0); MCH 32.5 pg (26.0-34.0); MCHC 34.4 g/dL (28.0-37.0); MCV 94.4 fL (80.0-100.0); RBC 3.1 mil/uL (4.50-6.00); RDW 13.5 % (10.5-14.5)
[2021-07-04 06:10] LABS: CALCIUM 8.4 mg/dL (8.5-10.1); CREATININE 0.8 mg/dL (0.7-1.3); POTASSIUM 3.8 mmol/L (3.5-5.1)
--- NOTE | 2021-07-04 09:51 | NUR ---
ASSUMED CARE OF PT AT 0700. PT BROTHER AND DR. SHERMAN AT BEDSIDE AT 0930. DR SHERMAN DISCUSSED MRI FINDINGS WITH BROTHER AND POC. WILL CONTINUE TO FOLLOW POC.
[2021-07-04 15:08] LABS: BE(vivo) 5.1 mmol/L (-2 to +3); HCO3 29.3 mmol/L (22.0-26.0); PO2 94.7 mmHg (80.0-100.0); pH 7.462 (7.360-7.450); sO2 97.6 % (92.0-98.0)
--- NOTE | 2021-07-04 16:01 | NUR ---
Vent, nutritional support. off sedation around 0930. No anticipated dc over the weekend. Brother already gone from visiting. Will cont following as needed or dc needs.
[2021-07-05] VITALS (22 sets, daily range): BP systolic 104–146; BP diastolic 43–64
[2021-07-05 05:10] LABS: HEMATOCRIT 27.5 % (42.0-52.0); HEMOGLOBIN 9.1 gm/dL (14.0-18.0); MCH 31.4 pg (26.0-34.0); MCHC 33.1 g/dL (28.0-37.0); MCV 94.9 fL (80.0-100.0); RBC 2.89 mil/uL (4.50-6.00); RDW 13.7 % (10.5-14.5); WBC 6.7 thou/uL (4.0-11.0)
[2021-07-05 05:26] LABS: CALCIUM 8.5 mg/dL (8.5-10.1); CREATININE 0.7 mg/dL (0.7-1.3); POTASSIUM 3.6 mmol/L (3.5-5.1)
--- NOTE | 2021-07-05 06:26 | NUR ---
PT REMAINED OFF SEDATION OVERNIGHT- NOT MUCH PROGRESS TOWARDS WAKING UP MORE. PT DOES MOVE LUE MORE THAN BEFORE. PT STILL DOES NOT FOLLOW COMMANDS OR TRACK.
--- NOTE | 2021-07-05 20:57 | NUR ---
ASSUMED CARE AT 190. 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 DISCUSSED HOW LONG SINCE LAST SEDATION USED, NEURO RESPONSE, NUTRITION, PT'S CONDITION WHEN ADMITTED. SAID HE WOULD COME VISIT IN THE MORNING BEFORE DR. BARRAGAN ROUNDS AND THEN WOULD LIKE TO SIT IN WITH HER AND HIS FATHER/PT'S BROTHER WHILE DISCUSSING POC; REPORTED HIS SISTER SEVEN WOULD ALSO LIKE TO BE A PART OF THE FAMILY MEETING IF POSSIBLE. WILL DISCUSS W/DAY RN DURING REPORT. WILL CONTINUE TO MONITOR.
[2021-07-06] VITALS (24 sets, daily range): BP systolic 115–146; BP diastolic 49–77
[2021-07-06 06:05] LABS: CALCIUM 8.7 mg/dL (8.5-10.1); CREATININE 0.7 mg/dL (0.7-1.3); POTASSIUM 3.9 mmol/L (3.5-5.1)
--- NOTE | 2021-07-06 19:42 | NUR ---
Pt not progressing towards plan of care as evidenced by continued unresponsiveness and dependence on vent for oxygen support.
[2021-07-07] VITALS (23 sets, daily range): BP systolic 104–167; BP diastolic 42–78
[2021-07-07 05:38] LABS: ABSOLUTE NEUTROPHILS 5.3 thou/uL (1.4-8.2); BASOPHILS 0.4 % (0.0-2.0); EOSINOPHILS 2.9 % (0.0-3.0); HEMATOCRIT 26.2 % (42.0-52.0); HEMOGLOBIN 8.7 gm/dL (14.0-18.0); LYMPHOCYTES 18.6 % (24.0-44.0); MCH 31.3 pg (26.0-34.0); MCHC 33.3 g/dL (28.0-37.0); MCV 94.1 fL (80.0-100.0); MONOCYTES 6.7 % (1.0-8.0); PLATELET COUNT 316 thou/uL (150-400); POLYS 71.4 % (36.0-66.0); RBC 2.78 mil/uL (4.50-6.00); RDW 13.6 % (10.5-14.5); WBC 7.5 thou/uL (4.0-11.0)
--- NOTE | 2021-07-07 05:42 | NUR ---
NO SIGNIFICANT CHANGES DURING THE NIGHT. PT OPENS EYES SPONTANEOUSLY BUT DOES NOT TRACK OR FOLLOW COMMANDS. NO SEDATING MEDICATIONS GIVEN. SPO2 > 95% ON VENT WITH 30% FIO2. AFEBRILE. VSS. SR, SB ON TELE. TF VIA OGT. TOLERATING TF WELL; RESIDUALS NO MORE THAN 200ML. Q2H TURN TO PREVENT FURTHER SKIN BREAKDOWN. SUTHERLAND TO DD WITH GOOD URINE OUTPUT. NOT PROGRESSING WELL TOWARD POC GOALS. WILL GIVE REPORT TO ONCOMING NURSE.
[2021-07-07 05:58] LABS: CALCIUM 8.4 mg/dL (8.5-10.1); CREATININE 0.7 mg/dL (0.7-1.3); POTASSIUM 3.7 mmol/L (3.5-5.1); TOTAL BILIRUBIN 0.2 mg/dL (0.2-1.0); TOTAL PROTEIN 5.6 g/dL (6.4-8.2)
[2021-07-07 10:11] LABS: BE(vivo) 3.6 mmol/L (-2 to +3); HCO3 27.4 mmol/L (22.0-26.0); PCO2 38.3 mmHg (35.0-45.0); PO2 96.2 mmHg (80.0-100.0); pH 7.472 (7.360-7.450); sO2 97.7 % (92.0-98.0)
--- NOTE | 2021-07-07 13:00 | NUR ---
Chart review. Cont to required vent and nutritional support. Off sedation, out of restraints. Nonresponsive. Possible going for mri today. Neuro MD spoke with his brother Ed over the past weekend. Cm spoke with Ed via phone call, he had question about how he doesnt not want to put him in a home because he feels he would not be cared for and just lye in vegetive state. Education that he might require special hospital, ie [facility]. Will cont following as needed for dc needs.
--- NOTE | 2021-07-07 13:04 | NUR ---
PT IS TOLERATING CPAP TRIAL VERY WELL, HAS BEEN ON SINCE 0900 PER RT YESENIA, AT THIS TIME PT IS CALM AND AT 100% SPO2. DOES NOT APPEAR TO BE IN ANY DISTRESS. PLAN TODAY IS TO TAKE THE PT DOWN TO THE MRI, MRI VENT MACHINE IS DOWN AT THIS TIME SO HAVING TO COORDINATE WITH RT TO GO DOWN TO MRI WITH THIS RN FOR THE PT. RN AWAITING PHYSICIAN TO DISCUSS POSSIBILITY OF EXTUBATION. CURRENT TENTATIVE TIME FOR MRI SCANNING IS SET FOR 1530, RN COORDINATING. PT RAN A TEMPERATURE OF 100.1 IN THE AM, WHEN RECHECKED PT IS AT 99.1 WITHOUT PHARMACOLOGICAL MEASURES AT THIS TIME. RN WILL UPDATE CARE NEEDED
[2021-07-08] VITALS (25 sets, daily range): BP systolic 90–135; BP diastolic 42–68
[2021-07-08 05:48] LABS: ABSOLUTE NEUTROPHILS 6.8 thou/uL (1.4-8.2); BASOPHILS 0.7 % (0.0-2.0); HEMATOCRIT 28.4 % (42.0-52.0); HEMOGLOBIN 9.6 gm/dL (14.0-18.0); LYMPHOCYTES 17.6 % (24.0-44.0); MCH 31.7 pg (26.0-34.0); MCHC 33.8 g/dL (28.0-37.0); MCV 93.9 fL (80.0-100.0); MONOCYTES 6.3 % (1.0-8.0); PLATELET COUNT 372 thou/uL (150-400); POLYS 73.4 % (36.0-66.0); RBC 3.02 mil/uL (4.50-6.00); RDW 13.5 % (10.5-14.5); WBC 9.2 thou/uL (4.0-11.0)
[2021-07-08 06:25] LABS: ALBUMIN 2.3 g/dL (3.4-5.0); CREATININE 0.7 mg/dL (0.7-1.3); POTASSIUM 3.9 mmol/L (3.5-5.1); TOTAL BILIRUBIN 0.2 mg/dL (0.2-1.0); TOTAL PROTEIN 6.2 g/dL (6.4-8.2)
--- NOTE | 2021-07-08 09:48 | NUR ---
Beside nurse asked cm to talk with family about comfort care. Cm spoke with ed and he wanted to know why i was talking about comfort, hospice house and ltc with hospice if needed. Education that will see how things go after he is palliative extubated, and arrangements. Ok i would like to know all of his dx, not sure how year ago he was able to help out our sister who passed about from covid and now he is not waking up, i am working on his arrangements and do not want trach and feeding tube. Do not want him to lye around as a vegetable per ed. Active listen and support during phone call.
--- NOTE | 2021-07-08 10:02 | NUR ---
THIS RN SPOKE W/ PT'S BROTHER "ED" REGARDING GOAL/DIRECTION OF CARE PLAN, PER THE BROTHER OF THE PT, HE HAD SPOKEN WITH (NEUROLOGY) EARLIER IN THE DAY AND HAD DETERMINED THAT HE WANTED THE ENDOTRACHEAL TUBE OUT OF THE PATIENT, LEAVE TUBE FEEDING RUNNING, AND "SEE HOW THE PATIENT DOES" HE ALSO SPECIFIED THAT WHAT HE DOES NOT WANT IS "FOR THE PATIENT TO END UP IN A CARE HOME CARE FACILITY" IN YESTERDAY'S CONVERSATION WITH THE BROTHER HE STATED THAT "IT WOULD NOT BE WHAT HE(THE PATIENT) WOULD WANT" RN EDUCATED THE PATIENT THAT FAR THIS RN IS AWARE, THE EXTUBATION WOULD OCCUR UNDER THE PRETENSE OF WITHDRAWAL OF CARE; WHICH WAS DISCUSSED DURING ROUNDING THIS MORNING, WHICH AT THAT POINT, TUBE FEEDING WOULD BE HALTED, AND ONLY COMFORT MEASURES WOULD BE TAKEN FOR THE PATIENT. GIVEN THE NEW EDUCATION ON WHAT COMFORT CARE WOULD MEAN FOR THE PATIENT, PATIENT HAD VERBALLY AGREED TO PROCEED ON WITH WITHDRAWAL/COMFORT CARE MEASURES, THE FOLLOWING QUESTION BEING WHEN WOULD IT OCCUR, TO WHICH RN EXPLAINED WHEN IT IS APPROPERIATE FOR THE FAMILY MEMBERS. WITHDRAWAL OF CARE WOULD HAVE TO BE ORDERED BY THE PHYSICIAN AND THIS RN WAS TOLD BY THE GRADER PATROL THAT HAD SPOKEN TO TO SPEAK WITH THE BROTHER REGARDING FUTURE GOAL OF CARE, SO AT THIS TIME, RN WILL AWAIT FURTHER COMMUNICATION FROM THE PHYSICIAN. RN ALSO SUSPECTED THAT IN THE EVENT OF WITHDRAWAL OF CARE, PATIENT MAY END UP SUSTAINING LIFE FOR AN EXTENDED PERIOD OF TIME AND IT WAS APPROPERIATE FOR THE GRADER PATROL TO BE INVOLVED TO SPEAK WITH THE BROTHER OF THE PATIENT TO DISCUSS POSSIBILITY OF HOSPICE OPTIONS IN THE EVENT THAT IT MAY BE NEEDED FOR SECONDARY OPTION. GRADER PATROL AGREED TO FUTURE PLANNING AND STATED THAT SHE WILL CALL THE BROTHER TO DISCUSS THESE THINGS. RN CURRENTLY ASSISTING IN GOAL OF CARE PLANNING AND WILL UPDATE SITUATION PROGRESSES.
--- NOTE | 2021-07-08 14:00 | NUR ---
Yuni CALL- THIS EQUAL OPPORTUNITY SPECIALIST READ NOTES ABOUT TODAY'S STAFF COMMUNICATIONS WITH PT.'S BROTHER ED. I CALLED TO LET HIM KNOW I HAVE BEEN PRAYING FOR HIS YOUNGER BROTHER EACH DAY. WE BRIEFLY DISCUSSED THE LOSS OF THEIR SISTER. I TOLD HIM I APPRECIATED HIS LOVE FOR HIS BROTHER TRYING TO HELP OUT IN THIS DIFFICULT SITUATION. I EXPRESSED MY AVAILBITLY IF I COULD BE OF ANY ASSISTANCE. IT LOOKED LIKE RN AND CM HAD EXPLAINED THE SITUATION QUITE WELL AND SHARED VERY VALID CONSIDERATIONS EXPRESSED BY THEIR NOTES.
[2021-07-09] VITALS (12 sets, daily range): BP systolic 91–132; BP diastolic 48–68
[2021-07-09 05:00] LABS: HEMATOCRIT 27.3 % (42.0-52.0); HEMOGLOBIN 9.2 gm/dL (14.0-18.0); MCH 31.9 pg (26.0-34.0); MCHC 33.8 g/dL (28.0-37.0); MCV 94.4 fL (80.0-100.0); RBC 2.89 mil/uL (4.50-6.00); RDW 13.5 % (10.5-14.5); WBC 9.2 thou/uL (4.0-11.0)
[2021-07-09 05:05] LABS: CALCIUM 8.8 mg/dL (8.5-10.1); CREATININE 0.7 mg/dL (0.7-1.3); POTASSIUM 3.9 mmol/L (3.5-5.1)
--- NOTE | 2021-07-09 06:15 | NUR ---
ASSUMED CARE 1900. VS STABLE OVERNIGHT, TUBE FEED INFUSING. ADEQUATE UOP. STILL HAS LARGE AMOUNT OF ORAL SECRETIONS; BECOMES TACHYPNIC AND COUGHS QUITE A BIT WHEN LAID FLAT OR TURNING FOR BATH, CAUSING AN INCREASE IN SECRETIONS. PLAN FOR PALLIATIVE EXTUBATION TODAY. WILL CONTINUE TO MONITOR.
--- NOTE | 2021-07-09 10:11 | NUR ---
THREE FAMILY MEMBERS (INCLUDING BROTHER) HERE AND STATED THEY WERE HERE SO THAT PATIENT CAN BE "TAKEN OFF LIFE SUPPORT" AND WANTED TO SPEAK WITH THE DOCTOR. DR. PUTNAM ON THE UNIT ROUNDING AND NOTIFIED AND WILL BE ROUNDING ON PATIENT SOON.
--- NOTE | 2021-07-09 11:00 | NUR ---
DR. PUTNAM TALKED TO THE FAMILY AND ANSWERED THEIR QNS AND FAMILY STATED THEY WERE READY FOR HIM TO BE TAKEN OFF THE VENT. ORDERS RECEIVED AND RT HOWARD NOTIFIED. ANTIANXIETY WAS ADMINISTERED AND PATIENT WAS EXTUBATED AT 1055 BY RT. NOW RESTING AND VITALS STABLE AT THIS TIME.
--- NOTE | 2021-07-09 14:08 | NUR ---
Discussed during los with the hospitalist. Extubate off vent today. Family was at beside. .
[2021-07-10 05:03] VITALS: BP 128/66
--- NOTE | 2021-07-10 05:51 | NUR ---
ASSUMED CARE AT 1900. PT ON RA, NONRESPONSIVE, SPOT CHECK VS OVERNIGHT HR SR IN 60'S, O2 SATS 86-92%. BED ON CLRT FOR COMFORT TURNS, SUTHERLAND AND FMS STILL IN PLACE FOR COMFORT. R IJ IN PLACE FOR PRN MEDICATIONS. FREQ ORAL CARE AND SUCTION D/T CONGESTED COUGH, LARGE AMOUNT OF CLEAR/WHITE SECRETIONS. PLAN TO MOVE PT TO 4WEST THIS AM, CONTINUE W/PALLIATIVE COMFORT MEASURES.
[2021-07-10 07:15] VITALS: BP 106/64
--- NOTE | 2021-07-10 11:11 | NUR ---
PT TRANSFERED TO 4W FROM ICU AFTER BEING EXTUBATED YESTERDAY. PT'S BROTHER ELECTED THAT PT BE MADE COMFORT MEASURES. CM SPOKE WITH PT'S BROTHER AND HE INDICATED THAT HE WAS RECEPTIVE TO HOSPICE HOUSE ASSESSING FOR POSSIBLE ADMISSION. CM FAXED REFERRAL. CM AWAITING RESPONSE. CM FOLLOWING REGARDING DC PLANNING.
--- NOTE | 2021-07-10 18:36 | NUR ---
COMFORT MEASURES PROVIDED. PT APPEARS COMFORTABLE. SUTHERLAND AND FECAL TUBE INTACT. BROTHER AT THE BEDSIDE. UP DATED ON PT'S PLAN OF CARE. SEE PROJECT MANAGER PROCESS DEVELOPMENT NOTES.
[2021-07-10 20:29] VITALS: BP 127/64
--- NOTE | 2021-07-11 06:55 | NUR ---
RECEIVED CARE OF THIS PATIENT AT 1900. PATIENT UNRESPONSIVE. NO MOVEMENT NOTED THIS SHIFT. NO SIGN OF PAIN. SUTHERLAND AND FECAL BAG. CONTINUES ON TELE.
[2021-07-11 07:42] VITALS: BP 118/65
--- NOTE | 2021-07-11 08:28 | NUR ---
Chart reviewed and noted comfort measusures in place. Defer further nutrition followup
--- NOTE | 2021-07-11 11:51 | NUR ---
HOSPICE HOUSE HAD BED TO ACCEPT PT THIS DAY. ORDERS ENTERED. [facility] FORM AND OUTSIDE HOSPITAL DNR FORM COMPLETED. AMBULANCE TRANSPORT ARRANGED FOR 12:30. HOSPICE HOUSE NOTIFIED WELL BROTHER. NURSE GIVEN NUMBER FOR REPORT. NO OTHER CM INTERVENTION INDICATED. CASE CLOSED.
[2021-07-11 12:01] VITALS: BP 126/69
--- NOTE | 2021-07-11 14:01 | NUR ---
Pt A & O x0. Pt VS stable. pt received discharge orders to hospice house, with IJ intact and rectal tube and morrissey intact for hospice house. pt transfer per ambulance. Transporters received discharge paperwork and pt personal belongings.
== END 2021-07-11 14:29 | disposition hospice, home (50) | DRG 870 ==
LOC: ER 14:34 → ICU 20:02 → 4W 07-10 06:22
PROVIDERS: Emergency Medicine; Hospitalist; Internal Medicine; Internal Medicine Pulmonary Disease; Pediatrics; ADMIT Hospitalist; ATTEND Hospitalist
PROC: 5A1955Z Respiratory Ventilation, Greater than 96 Consecutive Hours (ICD-10-PCS; principal; 2021-06-27)
PROC: 0BH17EZ Insertion of Endotracheal Airway into Trachea, Via Natural or Artificial Opening (ICD-10-PCS; 2021-06-27)
PROC: 02HV33Z Insertion of Infusion Device into Superior Vena Cava, Percutaneous Approach (ICD-10-PCS; 2021-06-27)
DX: A41.9 Sepsis, unspecified organism (principal); J96.01 Acute respiratory failure with hypoxia; J69.0 Pneumonitis due to inhalation of food and vomit; R65.21 Severe sepsis with septic shock; E43 Unspecified severe protein-calorie malnutrition; G92.8 Other toxic encephalopathy; E87.1 Hypo-osmolality and hyponatremia; N39.0 Urinary tract infection, site not specified; G93.1 Anoxic brain damage, not elsewhere classified; Z68.1 Body mass index [BMI] 19.9 or less, adult; I95.9 Hypotension, unspecified; E86.0 Dehydration; L89.622 Pressure ulcer of left heel, stage 2; Z20.822 Contact with and (suspected) exposure to COVID-19; J44.9 Chronic obstructive pulmonary disease, unspecified; F17.210 Nicotine dependence, cigarettes, uncomplicated; E83.51 Hypocalcemia; S30.0XXA Contusion of lower back and pelvis, initial encounter; S50.02XA Contusion of left elbow, initial encounter; S90.31XA Contusion of right foot, initial encounter; D64.9 Anemia, unspecified; L98.499 Non-pressure chronic ulcer of skin of other sites with unspecified severity; B96.89 Other specified bacterial agents as the cause of diseases classified elsewhere; Z51.5 Encounter for palliative care; X58.XXXA Exposure to other specified factors, initial encounter; Y93.89 Activity, other specified; Y92.89 Other specified places as the place of occurrence of the external cause; Y99.8 Other external cause status
CPT/HCPCS: 10047; 10078; 10204